=== PATIENT | female | born 1970 | race American Indian/Alaskan Native ===

== ENCOUNTER 2016-03-21 07:39 | Outpatient (CLI) | payer OTHER ==
[2016-03-21] MEDS ORDERED: XYLOCAINE TOPICAL 4% TP ONE ×2 (08:04→08:15)
== END 2016-03-21 07:40 | disposition home or self-care (01) ==
LOC: WOUND 07:39
PROVIDERS: ATTEND Orthopaedic Surgery
DX: L73.2 Hidradenitis suppurativa (principal); S21.002D Unspecified open wound of left breast, subsequent encounter; S21.001D Unspecified open wound of right breast, subsequent encounter; X58.XXXD Exposure to other specified factors, subsequent encounter

== ENCOUNTER 2016-03-28 07:45 | Outpatient (CLI) | payer OTHER ==
[2016-03-28] MEDS ORDERED: XYLOCAINE TOPICAL 4% TP ONE ×2 (08:04→15:00)
[2016-03-28] MEDS ORDERED: NACL 0.9% 500 ML IR ONE (08:15)
== END 2016-03-28 07:46 | disposition home or self-care (01) ==
LOC: WOUND 07:45
PROVIDERS: ATTEND Orthopaedic Surgery
DX: L73.2 Hidradenitis suppurativa (principal)

== ENCOUNTER 2016-04-11 08:02 | Outpatient (CLI) | payer OTHER ==
[2016-04-11] MEDS ORDERED: XYLOCAINE TOPICAL 2% TP ONE ×2 (08:08→14:41)
[2016-04-11] MEDS ORDERED: NACL 0.9% 500 ML IR ONE (08:12)
[2016-04-11] MEDS ORDERED: NACL 0.9% IR PRN (14:41)
== END 2016-04-11 08:03 | disposition home or self-care (01) ==
LOC: WOUND 08:02
PROVIDERS: ATTEND Orthopaedic Surgery
DX: L73.2 Hidradenitis suppurativa (principal)

== ENCOUNTER 2016-05-08 07:44 | Outpatient (CLI) | payer OTHER ==
[2016-05-08] MEDS ORDERED: NACL 0.9% 500 ML IR ONE (07:47)
[2016-05-08] MEDS ORDERED: XYLOCAINE TOPICAL 4% TP ONE ×2 (07:48→08:45)
[2016-05-08] MEDS ORDERED: NACL 0.9% IR ONE (08:45)
== END 2016-05-08 07:45 | disposition home or self-care (01) ==
LOC: WOUND 07:44
PROVIDERS: ATTEND Internal Medicine
DX: L98.491 Non-pressure chronic ulcer of skin of other sites limited to breakdown of skin (principal); E66.01 Morbid (severe) obesity due to excess calories; L73.2 Hidradenitis suppurativa; L20.82 Flexural eczema; L40.8 Other psoriasis

== ENCOUNTER 2016-06-26 08:04 | Outpatient (CLI) | payer OTHER ==
[~2016-06-26 08:04] MED LIST: NACL 0.9% 500 ML IR ONE; XYLOCAINE TOPICAL 2% TP ONE
[2016-06-26] MEDS ORDERED: NACL 0.9% IR PRN (09:01)
[2016-06-26] MEDS ORDERED: XYLOCAINE TOPICAL 2% TP ONE (09:01)
== END 2016-06-26 08:05 | disposition home or self-care (01) ==
LOC: WOUND 08:04
PROVIDERS: ATTEND Internal Medicine
DX: L98.491 Non-pressure chronic ulcer of skin of other sites limited to breakdown of skin (principal); E66.01 Morbid (severe) obesity due to excess calories; L73.2 Hidradenitis suppurativa; L40.8 Other psoriasis; Z68.39 Body mass index [BMI] 39.0-39.9, adult

== ENCOUNTER 2016-07-10 08:00 | Outpatient (CLI) | payer OTHER ==
[2016-07-10] MEDS ORDERED: XYLOCAINE TOPICAL 4% TP ONE ×2 (08:18→12:24)
[2016-07-10] MEDS ORDERED: SILVER NITRATE TP ONE ×3 (08:46→15:30)
== END 2016-07-10 08:01 | disposition home or self-care (01) ==
LOC: WOUND 08:00
PROVIDERS: ATTEND Surgery
DX: L73.2 Hidradenitis suppurativa (principal); E66.9 Obesity, unspecified; L40.9 Psoriasis, unspecified
CPT/HCPCS: 17250

== ENCOUNTER 2016-09-04 08:05 | Outpatient (CLI) | payer OTHER ==
[2016-09-04] MEDS ORDERED: XYLOCAINE TOPICAL 4% TP ONE (08:20)
[2016-09-04] MEDS ORDERED: SILVER NITRATE TP ONE ×3 (09:16→11:16)
== END 2016-09-04 08:06 | disposition home or self-care (01) ==
LOC: WOUND 08:05
PROVIDERS: ATTEND Surgery
DX: L73.2 Hidradenitis suppurativa (principal); E66.9 Obesity, unspecified; Z68.38 Body mass index [BMI] 38.0-38.9, adult
CPT/HCPCS: 17250; G0463; 99215

== ENCOUNTER 2016-10-17 08:04 | Outpatient (CLI) | payer OTHER ==
[2016-10-17] MEDS ORDERED: XYLOCAINE TOPICAL 4% TP ONE ×3 (08:16→09:13)
[2016-10-17] MEDS ORDERED: SILVER NITRATE TP ONE ×2 (09:18→15:10)
== END 2016-10-17 08:05 | disposition home or self-care (01) ==
LOC: WOUND 08:04
PROVIDERS: ATTEND Nurse Practitioner
DX: L73.2 Hidradenitis suppurativa (principal); E66.9 Obesity, unspecified; Z68.39 Body mass index [BMI] 39.0-39.9, adult
CPT/HCPCS: 11055

== ENCOUNTER 2016-11-07 08:03 | Outpatient (CLI) | payer OTHER ==
[2016-11-07] MEDS ORDERED: XYLOCAINE TOPICAL 4% TP ONE ×2 (08:25→08:34)
== END 2016-11-07 08:04 | disposition home or self-care (01) ==
LOC: WOUND 08:03
PROVIDERS: ATTEND Nurse Practitioner
DX: L73.2 Hidradenitis suppurativa (principal); S31.109D Unspecified open wound of abdominal wall, unspecified quadrant without penetration into peritoneal cavity, subsequent encounter; E66.9 Obesity, unspecified; Z68.39 Body mass index [BMI] 39.0-39.9, adult; X58.XXXD Exposure to other specified factors, subsequent encounter

== ENCOUNTER 2016-12-26 08:01 | Outpatient (CLI) | payer OTHER ==
[2016-12-26] MEDS ORDERED: XYLOCAINE TOPICAL 4% TP ONE (08:14)
[2016-12-26] MEDS ORDERED: SILVER NITRATE TP ONE ×2 (09:02→14:32)
== END 2016-12-26 08:02 | disposition home or self-care (01) ==
LOC: WOUND 08:01
PROVIDERS: ATTEND Nurse Practitioner
DX: L98.491 Non-pressure chronic ulcer of skin of other sites limited to breakdown of skin (principal); L73.2 Hidradenitis suppurativa; E66.9 Obesity, unspecified; Z90.710 Acquired absence of both cervix and uterus
CPT/HCPCS: 17250

== ENCOUNTER 2017-02-13 08:29 | Outpatient (CLI) | payer OTHER ==
[2017-02-13] MEDS ORDERED: XYLOCAINE TOPICAL 4% TP ONE (08:55)
[2017-02-13] MEDS ORDERED: NACL 0.9% IR PRN (08:56)
== END 2017-02-13 08:30 | disposition home or self-care (01) ==
LOC: WOUND 08:29
PROVIDERS: ATTEND Nurse Practitioner
DX: L73.2 Hidradenitis suppurativa (principal); S31.109D Unspecified open wound of abdominal wall, unspecified quadrant without penetration into peritoneal cavity, subsequent encounter; E66.9 Obesity, unspecified; Z68.39 Body mass index [BMI] 39.0-39.9, adult; X58.XXXD Exposure to other specified factors, subsequent encounter

== ENCOUNTER 2017-03-27 08:09 | Outpatient (CLI) | payer OTHER ==
[2017-03-27] MEDS ORDERED: XYLOCAINE TOPICAL 4% TP ONE (08:12)
== END 2017-03-27 08:10 | disposition home or self-care (01) ==
LOC: WOUND 08:09
PROVIDERS: ATTEND Nurse Practitioner
DX: S31.109D Unspecified open wound of abdominal wall, unspecified quadrant without penetration into peritoneal cavity, subsequent encounter (principal); L73.2 Hidradenitis suppurativa; E66.9 Obesity, unspecified; Z68.39 Body mass index [BMI] 39.0-39.9, adult; X58.XXXD Exposure to other specified factors, subsequent encounter

== ENCOUNTER 2017-04-17 08:05 | Outpatient (CLI) | payer OTHER ==
[2017-04-17] MEDS ORDERED: XYLOCAINE TOPICAL 4% TP ONE ×4 (08:26→08:51)
== END 2017-04-17 08:06 | disposition home or self-care (01) ==
LOC: WOUND 08:05
PROVIDERS: ATTEND Nurse Practitioner
DX: L73.2 Hidradenitis suppurativa (principal); E66.9 Obesity, unspecified; S31.109D Unspecified open wound of abdominal wall, unspecified quadrant without penetration into peritoneal cavity, subsequent encounter; Z68.39 Body mass index [BMI] 39.0-39.9, adult; X58.XXXD Exposure to other specified factors, subsequent encounter

== ENCOUNTER 2017-05-15 07:58 | Outpatient (CLI) | payer OTHER ==
[2017-05-15] MEDS ORDERED: XYLOCAINE TOPICAL 4% TP ONE (08:13)
[2017-05-15] MEDS ORDERED: NACL 0.9% IR PRN (08:13)
[2017-05-15] MEDS ORDERED: SILVER NITRATE TP ONE ×2 (09:06→09:30)
== END 2017-05-15 07:59 | disposition home or self-care (01) ==
LOC: WOUND 07:58
PROVIDERS: ATTEND Nurse Practitioner
DX: S31.109D Unspecified open wound of abdominal wall, unspecified quadrant without penetration into peritoneal cavity, subsequent encounter (principal); L73.2 Hidradenitis suppurativa; E66.9 Obesity, unspecified; Z68.39 Body mass index [BMI] 39.0-39.9, adult; X58.XXXD Exposure to other specified factors, subsequent encounter

== ENCOUNTER 2017-07-02 08:16 | Outpatient (CLI) | payer OTHER ==
[2017-07-02] MEDS ORDERED: XYLOCAINE TOPICAL 4% TP ONE ×2 (08:29→08:32)
== END 2017-07-02 08:17 | disposition home or self-care (01) ==
LOC: WOUND 08:16
PROVIDERS: ATTEND Surgery
DX: S31.109D Unspecified open wound of abdominal wall, unspecified quadrant without penetration into peritoneal cavity, subsequent encounter (principal); S31.103D Unspecified open wound of abdominal wall, right lower quadrant without penetration into peritoneal cavity, subsequent encounter; S31.104D Unspecified open wound of abdominal wall, left lower quadrant without penetration into peritoneal cavity, subsequent encounter; S31.502A Unspecified open wound of unspecified external genital organs, female, initial encounter; L73.2 Hidradenitis suppurativa; E66.9 Obesity, unspecified; L40.9 Psoriasis, unspecified; Z90.710 Acquired absence of both cervix and uterus; Z68.39 Body mass index [BMI] 39.0-39.9, adult; X58.XXXD Exposure to other specified factors, subsequent encounter; X58.XXXA Exposure to other specified factors, initial encounter; Y93.89 Activity, other specified; Y92.89 Other specified places as the place of occurrence of the external cause; Y99.8 Other external cause status
CPT/HCPCS: 99214; G0463

== ENCOUNTER 2017-07-24 07:55 | Outpatient (CLI) | payer OTHER ==
[2017-07-24] MEDS ORDERED: XYLOCAINE TOPICAL 4% TP ONE (08:19)
[2017-07-24] MEDS ORDERED: NACL 0.9% IR ONE (08:19)
== END 2017-07-24 07:56 | disposition home or self-care (01) ==
LOC: WOUND 07:55
PROVIDERS: ATTEND Surgery
DX: L73.2 Hidradenitis suppurativa (principal); E66.9 Obesity, unspecified; Z68.39 Body mass index [BMI] 39.0-39.9, adult; Z90.710 Acquired absence of both cervix and uterus
CPT/HCPCS: 99215; G0463

== ENCOUNTER 2017-08-14 08:01 | Outpatient (CLI) | payer OTHER ==
[2017-08-14] MEDS ORDERED: XYLOCAINE TOPICAL 4% TP ONE ×2 (08:32→09:05)
== END 2017-08-14 08:02 | disposition home or self-care (01) ==
LOC: WOUND 08:01
PROVIDERS: ATTEND Surgery
DX: L73.2 Hidradenitis suppurativa (principal); S31.109D Unspecified open wound of abdominal wall, unspecified quadrant without penetration into peritoneal cavity, subsequent encounter; L40.9 Psoriasis, unspecified; E66.9 Obesity, unspecified; Z68.39 Body mass index [BMI] 39.0-39.9, adult; Z90.710 Acquired absence of both cervix and uterus; X58.XXXD Exposure to other specified factors, subsequent encounter
CPT/HCPCS: 99214; G0463

== ENCOUNTER 2017-10-09 08:11 | Outpatient (CLI) | payer OTHER | END 2017-10-09 08:12 | disposition home or self-care (01) | LOC: WOUND 08:11 | PROVIDERS: ATTEND Surgery | DX: L73.2 Hidradenitis suppurativa (principal); S31.109D Unspecified open wound of abdominal wall, unspecified quadrant without penetration into peritoneal cavity, subsequent encounter; L40.9 Psoriasis, unspecified; E66.9 Obesity, unspecified; Z68.39 Body mass index [BMI] 39.0-39.9, adult; Z90.710 Acquired absence of both cervix and uterus; X58.XXXD Exposure to other specified factors, subsequent encounter | CPT/HCPCS: 99215; G0463 ==

== ENCOUNTER 2017-12-03 09:45 | Outpatient (CLI) | payer OTHER ==
[2017-12-03] MEDS ORDERED: XYLOCAINE TOPICAL 4% TP ONE ×2 (09:58→12:24)
[2017-12-03] MEDS ORDERED: SILVER NITRATE TP ONE ×2 (10:31→12:24)
== END 2017-12-03 09:46 | disposition home or self-care (01) ==
LOC: WOUND 09:45
PROVIDERS: ATTEND Surgery
DX: L73.2 Hidradenitis suppurativa (principal); S31.109D Unspecified open wound of abdominal wall, unspecified quadrant without penetration into peritoneal cavity, subsequent encounter; L40.9 Psoriasis, unspecified; E66.9 Obesity, unspecified; Z68.39 Body mass index [BMI] 39.0-39.9, adult; Z90.710 Acquired absence of both cervix and uterus; X58.XXXD Exposure to other specified factors, subsequent encounter
CPT/HCPCS: 17250